=== PATIENT | female | born 1970 | race African-American/Black ===

== ENCOUNTER 2017-08-19 17:29 | Emergency (ER) | payer OTHER, MEDICAID ==
[~2017-08-19] VITALS: Ht 154.9 cm; Wt 55.0 kg
[~2017-08-19 17:29] MED LIST: BENADRYL1 CRE EX; FEOSOL45 MG PO; LISINOPRIL5 MG PO; LORTAB 1010 MG PO; NAPROSYN500 MG PO; NO HOME MEDS; NORVASC PO; NORVASC2.5 MG PO; ULTRAM50 M1 PO
[2017-08-19] MEDS ORDERED: ORPHENADRINE100 MG PO (19:50)
[2017-08-19] MEDS ORDERED: PERCOCET 5/325M1 TAB PO (19:50)
[2017-08-19 20:03] VITALS: BP 149/97
== END 2017-08-19 20:09 | disposition home or self-care (01) | DRG 552 ==
LOC: ED 17:29
DX: S16.1XXA Strain of muscle, fascia and tendon at neck level, initial encounter (principal); I10 Essential (primary) hypertension; V49.40XA Driver injured in collision with unspecified motor vehicles in traffic accident, initial encounter

== ENCOUNTER 2017-10-16 15:04 | Emergency (ER) | payer MEDICAID ==
[~2017-10-16] VITALS: Ht 154.9 cm; Wt 52.0 kg
[~2017-10-16 15:04] MED LIST changes: +ORPHENADRINE100 MG PO; +PERCOCET 5/325M1 TAB PO
[2017-10-16] MEDS ORDERED: LISINOPRIL10 MG PO (15:19)
[2017-10-16] MEDS ORDERED: CITALOPRAM40 MG PO (15:19)
[2017-10-16 16:01] LABS: HEMATOCRIT 40.9 % (37.0-47.0); HEMOGLOBIN 13.5 g/dl (12.0-16.0); IMMATURE GRANULOCYTES 0.2 % (0.0-1.0); MEAN CELL VOLUME 97.8 fL CALC (80.0-100.0); MEAN CORPUSCULAR HGB 32.3 pG CALC (26.0-32.0); NEUT# 1.74 thou/uL (2.00-7.15); RED BLOOD COUNT 4.18 mill/uL (4.20-5.60); RED CELL DISTRI WIDTH 12.8 % (11.5-15.5)
[2017-10-16 16:19] LABS: ANION GAP 19 (6-22 (CALC)); BUN 11 mg/dL (7-17); BUN/CREATININE RATIO 13 (12-20 (CALC)); CALCIUM 9.9 mg/dL (8.4-10.2); CARBON DIOXIDE 23 mmol/l (22-30); CHLORIDE 103 mmol/l (95-108); CREATININE 0.9 mg/dL (0.5-1.0); GFR > 60 ML/MIN (>=60 (CALC)); GFR FOR AFR.AMER. > 60 ML/MIN (>=60 (CALC)); GLUCOSE 110 mg/dL (65-105); POTASSIUM 4.1 mmol/l (3.5-5.1); SODIUM 141 mmol/l (137-146)
[2017-10-16 17:12] VITALS: BP 167/98
[2017-10-17] MEDS ORDERED: MOTRIN800 MG PO (12:51)
== END 2017-10-16 17:16 | disposition home or self-care (01) | DRG 103 ==
LOC: ED 15:04
PROVIDERS: Family Medicine
DX: R51 Headache (principal); I10 Essential (primary) hypertension

== ENCOUNTER 2017-10-17 12:01 | Emergency (ER) | payer MEDICAID ==
[~2017-10-17] VITALS: Ht 154.9 cm; Wt 52.0 kg
[~2017-10-17 12:01] MED LIST changes: +CITALOPRAM40 MG PO; +LISINOPRIL10 MG PO
[2017-10-17] MEDS ORDERED: MOTRIN800 MG PO (12:51)
[2017-10-17 13:05] VITALS: BP 141/91
== END 2017-10-17 13:05 | disposition home or self-care (01) | DRG 103 ==
LOC: ED 12:01
DX: R51 Headache (principal); I10 Essential (primary) hypertension

== ENCOUNTER 2017-10-18 17:24 | Emergency (ER) | payer MEDICAID ==
[~2017-10-18] VITALS: Ht 154.9 cm; Wt 50.0 kg
[~2017-10-18 17:24] MED LIST changes: +MOTRIN800 MG PO
[2017-10-18 19:30] VITALS: BP 128/72
== END 2017-10-18 19:35 | disposition home or self-care (01) | DRG 103 ==
LOC: ED 17:24
DX: R51 Headache (principal); I10 Essential (primary) hypertension

== ENCOUNTER 2017-11-03 16:27 | Emergency (ER) | payer MEDICAID ==
[~2017-11-03] VITALS: Ht 154.9 cm; Wt 65.0 kg
[2017-11-03] MEDS ORDERED: LISINOP/HCTZ1 TA1 PO (17:24)
[2017-11-03] MEDS ORDERED: SERTRALINE50 MG PO (17:24)
[2017-11-03] MEDS ORDERED: ADLT ASA LOW81 MG PO (17:25)
[2017-11-03 17:36] VITALS: BP 143/87
== END 2017-11-03 17:36 | disposition home or self-care (01) | DRG 880 ==
LOC: ED 16:27
DX: F41.9 Anxiety disorder, unspecified (principal); I10 Essential (primary) hypertension

== ENCOUNTER 2017-11-12 05:50 | Observation (INO) | payer MEDICAID ==
[~2017-11-12] VITALS: Ht 154.9 cm; Wt 50.0 kg
[~2017-11-12 05:50] MED LIST changes: +ADLT ASA LOW81 MG PO; +LISINOP/HCTZ1 TA1 PO; +SERTRALINE50 MG PO
[2017-11-12] MEDS ORDERED: AMLODIPINE5 MG PO (06:11)
[2017-11-12] MEDS ORDERED: LOSARTAN POT50 MG PO (06:12)
[2017-11-12] MEDS ORDERED: CARVEDILOL6.25 MG PO (06:13)
[2017-11-12 07:23] LABS: HEMATOCRIT 45.8 % (37.0-47.0); HEMOGLOBIN 15.2 g/dl (12.0-16.0); IMMATURE GRANULOCYTES 0.2 % (0.0-1.0); MEAN CORPUSCULAR HGB 32.2 pG CALC (26.0-32.0); MEAN CORPUSCULAR HGB CONC 33.2 g/L CALC (32.0-36.0); NEUT# 2.69 thou/uL (2.00-7.15); RED BLOOD COUNT 4.72 mill/uL (4.20-5.60); RED CELL DISTRI WIDTH 12.4 % (11.5-15.5)
[2017-11-12 07:32] LABS: ANION GAP 17 (6-22 (CALC)); BUN 9 mg/dL (7-17); BUN/CREATININE RATIO 11 (12-20 (CALC)); CALCIUM 10.3 mg/dL (8.4-10.2); CARBON DIOXIDE 25 mmol/l (22-30); CHLORIDE 105 mmol/l (95-108); CREATININE 0.8 mg/dL (0.5-1.0); GFR > 60 ML/MIN (>=60 (CALC)); GFR FOR AFR.AMER. > 60 ML/MIN (>=60 (CALC)); GLUCOSE 105 mg/dL (65-105); POTASSIUM 4.2 mmol/l (3.5-5.1); SODIUM 143 mmol/l (137-146)
[2017-11-12 09:34] LABS: CHOLESTEROL HDL RATIO 3.8 (<4.4 (CALC))
[2017-11-12 10:17] VITALS: BP 121/89
== END 2017-11-12 11:00 | disposition left against medical advice (07) | DRG 313 ==
LOC: ED 05:50 → ED-I 08:29 → ED 08:54 → MS2 08:55
PROVIDERS: Family Medicine; ADMIT Internal Medicine; ATTEND Internal Medicine
DX: R07.9 Chest pain, unspecified (principal); I10 Essential (primary) hypertension; F41.9 Anxiety disorder, unspecified
CPT/HCPCS: G0378

== ENCOUNTER 2017-11-12 11:15 | Emergency (ER) | payer MEDICAID ==
[~2017-11-12] VITALS: Ht 154.9 cm; Wt 51.2 kg
[~2017-11-12 11:15] MED LIST changes: +AMLODIPINE5 MG PO; +CARVEDILOL6.25 MG PO; +LOSARTAN POT50 MG PO
[2017-11-12 12:32] LABS: HEMATOCRIT 41.8 % (37.0-47.0); HEMOGLOBIN 13.7 g/dl (12.0-16.0); IMMATURE GRANULOCYTES 0.2 % (0.0-1.0); MEAN CORPUSCULAR HGB 31.8 pG CALC (26.0-32.0); MEAN CORPUSCULAR HGB CONC 32.8 g/L CALC (32.0-36.0); NEUT# 2.38 thou/uL (2.00-7.15); RED BLOOD COUNT 4.31 mill/uL (4.20-5.60); RED CELL DISTRI WIDTH 12.5 % (11.5-15.5)
[2017-11-12 12:47] LABS: ANION GAP 16 (6-22 (CALC)); BUN 9 mg/dL (7-17); BUN/CREATININE RATIO 13 (12-20 (CALC)); CALCIUM 10.1 mg/dL (8.4-10.2); CARBON DIOXIDE 22 mmol/l (22-30); CHLORIDE 107 mmol/l (95-108); CREATININE 0.7 mg/dL (0.5-1.0); GFR > 60 ML/MIN (>=60 (CALC)); GFR FOR AFR.AMER. > 60 ML/MIN (>=60 (CALC)); GLUCOSE 125 mg/dL (65-105); POTASSIUM 4.2 mmol/l (3.5-5.1); SODIUM 140 mmol/l (137-146)
[2017-11-12 13:15] VITALS: BP 120/89
== END 2017-11-12 13:15 | disposition home or self-care (01) | DRG 948 ==
LOC: ED 11:15
PROVIDERS: Family Medicine
DX: R53.1 Weakness (principal); I10 Essential (primary) hypertension

== ENCOUNTER 2017-12-16 12:33 | Observation (INO) | payer MEDICAID ==
[~2017-12-16] VITALS: Ht 154.9 cm; Wt 50.0 kg
[2017-12-16 13:25] LABS: HEMOGLOBIN 13.8 g/dl (12.0-16.0); IMMATURE GRANULOCYTES 0.7 % (0.0-1.0); MEAN CELL VOLUME 97.9 fL CALC (80.0-100.0); MEAN CORPUSCULAR HGB 32.2 pG CALC (26.0-32.0); MEAN CORPUSCULAR HGB CONC 32.9 g/L CALC (32.0-36.0); NEUT# 1.09 thou/uL (2.00-7.15); RED BLOOD COUNT 4.29 mill/uL (4.20-5.60); RED CELL DISTRI WIDTH 13.1 % (11.5-15.5)
[2017-12-16 13:46] LABS: ANION GAP 17 (6-22 (CALC)); BUN 12 mg/dL (7-17); BUN/CREATININE RATIO 15 (12-20 (CALC)); CALCIUM 9.9 mg/dL (8.4-10.2); CARBON DIOXIDE 24 mmol/l (22-30); CHLORIDE 107 mmol/l (95-108); CREATININE 0.8 mg/dL (0.5-1.0); GFR > 60 ML/MIN (>=60 (CALC)); GFR FOR AFR.AMER. > 60 ML/MIN (>=60 (CALC)); GLUCOSE 85 mg/dL (65-105); SODIUM 144 mmol/l (137-146)
[2017-12-16 15:46] VITALS: BP 140/96
[2017-12-16 20:25] VITALS: BP 139/90
[2017-12-17 00:30] VITALS: BP 119/81
[2017-12-17 05:05] VITALS: BP 131/95
[2017-12-17 07:32] LABS: CHOLESTEROL HDL RATIO 2.6 (<4.4 (CALC))
[2017-12-17 08:18] VITALS: BP 138/97
[2017-12-17 12:40] VITALS: BP 141/95
[2017-12-17] MEDS ORDERED: LOSARTAN POT50 MG PO (13:33)
[2017-12-17] MEDS ORDERED: AMLODIPINE BESYL5 MG PO (13:33)
== END 2017-12-17 14:50 | disposition home or self-care (01) | DRG 305 ==
LOC: ED 12:33 → ED-I 14:02 → ED 14:15 → MS2 14:16
PROVIDERS: Family Medicine; ADMIT Internal Medicine; ATTEND Internal Medicine
DX: I16.0 Hypertensive urgency (principal); I10 Essential (primary) hypertension; D70.9 Neutropenia, unspecified; D50.9 Iron deficiency anemia, unspecified; F41.9 Anxiety disorder, unspecified; Z91.14 Patient's other noncompliance with medication regimen
CPT/HCPCS: G0378

== ENCOUNTER 2018-04-08 16:50 | Emergency (ER) | payer MEDICAID ==
[~2018-04-08] VITALS: Ht 154.9 cm; Wt 52.0 kg
[~2018-04-08 16:50] MED LIST changes: +AMLODIPINE BESYL5 MG PO
[2018-04-08 17:52] LABS: HEMATOCRIT 42.8 % (37.0-47.0); HEMOGLOBIN 13.9 g/dl (12.0-16.0); MEAN CELL VOLUME 98.6 fL CALC (80.0-100.0); MEAN CORPUSCULAR HGB CONC 32.5 g/L CALC (32.0-36.0); NEUT# 1.42 thou/uL (2.00-7.15); RED BLOOD COUNT 4.34 mill/uL (4.20-5.60); RED CELL DISTRI WIDTH 13.1 % (11.5-15.5)
[2018-04-08] MEDS ORDERED: LEVAQUIN500 MG PO (17:53)
[2018-04-08] MEDS ORDERED: CORTISPORIN OTI10 M2 AU (17:53)
[2018-04-08] MEDS ORDERED: ANTIVERT PO (17:54)
[2018-04-08 18:08] LABS: ALBUMIN 4.4 g/dL (3.2-5.0); ALKALINE PHOSPHATASE 56 u/l (38-126); BILIRUBIN, TOTAL 0.4 mg/dL (0.0-1.4); BUN 18 mg/dL (7-17); BUN/CREATININE RATIO 19 (12-20 (CALC)); CARBON DIOXIDE 25 mmol/l (22-30); CHLORIDE 104 mmol/l (95-108); GFR 59 ML/MIN (>=60 (CALC)); GFR FOR AFR.AMER. > 60 ML/MIN (>=60 (CALC)); SGOT/AST 22 u/l (14-36); SGPT/ALT 23 u/l (9-52); SODIUM 143 mmol/l (137-146); TOTAL PROTEIN 8.5 g/dL (6.3-8.2)
[2018-04-08 18:16] LABS: ANION GAP 18 (6-22 (CALC)); POTASSIUM 3.8 mmol/l (3.5-5.1)
[2018-04-08 18:56] VITALS: BP 150/86
== END 2018-04-08 18:53 | disposition home or self-care (01) | DRG 153 ==
LOC: ED 16:50
PROVIDERS: Emergency Medicine
DX: H66.92 Otitis media, unspecified, left ear (principal); R42 Dizziness and giddiness; F41.9 Anxiety disorder, unspecified; I10 Essential (primary) hypertension

== ENCOUNTER 2018-07-04 14:43 | Emergency (ER) | payer MEDICAID ==
[~2018-07-04] VITALS: Ht 154.9 cm; Wt 54.0 kg
[~2018-07-04 14:43] MED LIST changes: +ANTIVERT PO; +CORTISPORIN OTI10 M2 AU; +LEVAQUIN500 MG PO
[2018-07-04 15:57] LABS: HEMATOCRIT 39.1 % (37.0-47.0); HEMOGLOBIN 12.8 g/dl (12.0-16.0); IMMATURE GRANULOCYTES 0.2 % (0.0-5.0); MEAN CELL VOLUME 99.2 fL CALC (80.0-100.0); MEAN CORPUSCULAR HGB 32.5 pG CALC (26.0-32.0); MEAN CORPUSCULAR HGB CONC 32.7 g/L CALC (32.0-36.0); NEUT# 2.26 thou/uL (2.00-7.15); RED BLOOD COUNT 3.94 mill/uL (4.20-5.60); RED CELL DISTRI WIDTH 13.1 % (11.5-15.5)
[2018-07-04 16:08] LABS: ALKALINE PHOSPHATASE 47 u/l (38-126); ANION GAP 14 (6-22 (CALC)); BILIRUBIN, TOTAL 0.7 mg/dL (0.0-1.4); BUN 12 mg/dL (7-17); BUN/CREATININE RATIO 16 (12-20 (CALC)); CARBON DIOXIDE 25 mmol/l (22-30); CHLORIDE 104 mmol/l (95-108); CREATININE 0.8 mg/dL (0.5-1.0); ETHYL ALCOHOL 0 mg/dl (0-30); GFR > 60 ML/MIN (>=60 (CALC)); GFR FOR AFR.AMER. > 60 ML/MIN (>=60 (CALC)); SGPT/ALT 25 u/l (9-52); SODIUM 139 mmol/l (137-146); TOTAL PROTEIN 7.9 g/dL (6.3-8.2)
[2018-07-04 16:09] LABS: PROTHROMBIN TIME 11.2 SECONDS (9.0-12.5)
[2018-07-04 16:14] LABS: SGOT/AST 51 u/l (14-36)
[2018-07-04 16:38] LABS: BARBITURATES NEGATIVE (NEGATIVE); COCAINE NEGATIVE (NEGATIVE); METHADONE NEGATIVE (NEGATIVE); OXCYCODONE NEGATIVE (NEGATIVE); TETRAHYDROCANNABIONOL NEGATIVE (NEGATIVE); TRICYLIC ANTIDEPRESSANTS NEGATIVE (NEGATIVE)
[2018-07-04] MEDS ORDERED: AMLODIPINE BESY10 MG PO (18:09)
[2018-07-04] MEDS ORDERED: LOSARTAN POT50 MG PO (18:09)
[2018-07-04 18:30] VITALS: BP 144/107
== END 2018-07-04 18:35 | disposition home or self-care (01) ==
LOC: ED 14:43
PROVIDERS: Emergency Medicine
DX: I10 Essential (primary) hypertension (principal); Z91.14 Patient's other noncompliance with medication regimen

== ENCOUNTER 2018-11-09 11:39 | Emergency (ER) | payer MEDICAID ==
[~2018-11-09] VITALS: Ht 154.9 cm; Wt 50.0 kg
[~2018-11-09 11:39] MED LIST changes: +AMLODIPINE BESY10 MG PO; +MECLIZINE12.5 M1 PO; +MEDDOSEPAK PO; +TRAMADOL HCL50 MG PO
[2018-11-09 11:59] LABS: HEMOGLOBIN 13.5 g/dl (12.0-16.0); IMMATURE GRANULOCYTES 0.2 % (0.0-5.0); MEAN CELL VOLUME 98.8 fL CALC (80.0-100.0); MEAN CORPUSCULAR HGB 32.7 pG CALC (26.0-32.0); MEAN CORPUSCULAR HGB CONC 33.1 g/L CALC (32.0-36.0); NEUT# 1.98 thou/uL (2.00-7.15); RED BLOOD COUNT 4.13 mill/uL (4.20-5.60); RED CELL DISTRI WIDTH 12.9 % (11.5-15.5)
[2018-11-09 12:00] LABS: HEMATOCRIT 40.8 % (37.0-47.0)
[2018-11-09 12:21] LABS: ALKALINE PHOSPHATASE 50 u/l (38-126); ANION GAP 15 (6-22 (CALC)); BILIRUBIN, TOTAL 0.4 mg/dL (0.0-1.4); BUN 20 mg/dL (7-17); BUN/CREATININE RATIO 23 (12-20 (CALC)); CARBON DIOXIDE 22 mmol/l (22-30); CHLORIDE 107 mmol/l (95-108); CREATININE 0.9 mg/dL (0.5-1.0); GFR > 60 ML/MIN (>=60 (CALC)); GFR FOR AFR.AMER. > 60 ML/MIN (>=60 (CALC)); POTASSIUM 3.9 mmol/l (3.5-5.1); SGOT/AST 23 u/l (14-36); SODIUM 140 mmol/l (137-146)
[2018-11-09 12:24] LABS: TOTAL PROTEIN 7.8 g/dL (6.3-8.2)
[2018-11-09 12:33] LABS: BARBITURATES NEGATIVE (NEGATIVE); COCAINE NEGATIVE (NEGATIVE); METHADONE NEGATIVE (NEGATIVE); OXCYCODONE NEGATIVE (NEGATIVE); TETRAHYDROCANNABIONOL NEGATIVE (NEGATIVE); TRICYLIC ANTIDEPRESSANTS NEGATIVE (NEGATIVE); URINE BILIRUBIN - DIPSTICK NEGATIVE (NEGATIVE); URINE BLOOD DIPSTICK NEGATIVE (NEGATIVE); URINE COLOR YELLOW; URINE GLUCOSE - DIPSTICK NEGATIVE (NEGATIVE); URINE KETONE NEGATIVE (NEGATIVE); URINE LEUK ESTERASE NEGATIVE (NEGATIVE); URINE NITRITE - DIPSTICK NEGATIVE (Negative); URINE PROTEIN - DIPSTICK NEGATIVE (NEG-TRACE); URINE SPECIFIC GRAVITY >=1.030; URINE UROBILINOGEN - DIPSTICK 0.2 E.U./dL (0.2)
[2018-11-09] MEDS ORDERED: AMLODIPINE10 MG PO (12:46)
[2018-11-09] MEDS ORDERED: LOSARTAN POT50 MG PO (12:46)
[2018-11-09 13:11] VITALS: BP 136/85
== END 2018-11-09 13:18 | disposition home or self-care (01) ==
LOC: ED 11:39
PROVIDERS: Emergency Medicine
DX: I10 Essential (primary) hypertension (principal); F41.9 Anxiety disorder, unspecified; Z91.14 Patient's other noncompliance with medication regimen

== ENCOUNTER 2018-12-21 10:21 | Emergency (ER) | payer MEDICAID ==
[~2018-12-21] VITALS: Ht 154.9 cm; Wt 50.0 kg
[~2018-12-21 10:21] MED LIST changes: +AMLODIPINE10 MG PO
[2018-12-21] MEDS ORDERED: ATENOLOL25 MG PO (10:33)
[2018-12-21 12:12] LABS: ALBUMIN 3.7 g/dL (3.2-5.0); ALKALINE PHOSPHATASE 44 u/l (38-126); ANION GAP 11 (6-22 (CALC)); BILIRUBIN, TOTAL 0.6 mg/dL (0.0-1.4); BUN 13 mg/dL (7-17); BUN/CREATININE RATIO 14 (12-20 (CALC)); CARBON DIOXIDE 25 mmol/l (22-30); CHLORIDE 106 mmol/l (95-108); CREATININE 0.9 mg/dL (0.5-1.0); GFR > 60 ML/MIN (>=60 (CALC)); GFR FOR AFR.AMER. > 60 ML/MIN (>=60 (CALC)); LIPASE 81 u/l (23-300); SGOT/AST 28 u/l (14-36); SODIUM 139 mmol/l (137-146)
[2018-12-21 12:19] LABS: HEMATOCRIT 44.6 % (37.0-47.0); HEMOGLOBIN 14.6 g/dl (12.0-16.0); IMMATURE GRANULOCYTES 0.2 % (0.0-5.0); MEAN CELL VOLUME 100.9 fL CALC (80.0-100.0); MEAN CORPUSCULAR HGB CONC 32.7 g/L CALC (32.0-36.0); NEUT# 1.62 thou/uL (2.00-7.15); RED BLOOD COUNT 4.42 mill/uL (4.20-5.60); RED CELL DISTRI WIDTH 13.6 % (11.5-15.5)
[2018-12-21 13:38] LABS: BARBITURATES NEGATIVE (NEGATIVE); COCAINE NEGATIVE (NEGATIVE); METHADONE NEGATIVE (NEGATIVE); OXCYCODONE NEGATIVE (NEGATIVE); TETRAHYDROCANNABIONOL NEGATIVE (NEGATIVE); TRICYLIC ANTIDEPRESSANTS NEGATIVE (NEGATIVE)
[2018-12-21] MEDS ORDERED: XANAX0.25 MG PO (13:58)
[2018-12-21] MEDS ORDERED: PROTONIX40 M2 PO (13:58)
[2018-12-21 14:33] VITALS: BP 127/89
== END 2018-12-21 15:00 | disposition home or self-care (01) ==
LOC: ED 10:21
PROVIDERS: Emergency Medicine
DX: R07.89 Other chest pain (principal); F41.9 Anxiety disorder, unspecified; I10 Essential (primary) hypertension

== ENCOUNTER 2020-03-07 | Emergency (ER) | payer MEDICAID ==
[~2020-03-07] MED LIST changes: +ATENOLOL25 MG PO; +PROTONIX40 M2 PO; +XANAX0.25 MG PO
[2020-03-07] MEDS ORDERED: LISINOPRIL10 M1 PO (22:38)
[2020-03-07 23:09] LABS: URINE BILIRUBIN - DIPSTICK NEGATIVE (NEGATIVE); URINE BLOOD DIPSTICK TRACE-INTACT (NEGATIVE); URINE COLOR YELLOW; URINE GLUCOSE - DIPSTICK NEGATIVE (NEGATIVE); URINE KETONE NEGATIVE (NEGATIVE); URINE LEUK ESTERASE NEGATIVE (NEGATIVE); URINE NITRITE - DIPSTICK NEGATIVE (Negative); URINE PH 5.5 (4.5-8.0); URINE PROTEIN - DIPSTICK NEGATIVE (NEG-TRACE); URINE SPECIFIC GRAVITY 1.025; URINE UROBILINOGEN - DIPSTICK 0.2 E.U./dL (0.2)
[2020-03-07 23:14] LABS: BARBITURATES NEGATIVE (NEGATIVE); COCAINE NEGATIVE (NEGATIVE); METHADONE NEGATIVE (NEGATIVE); OXCYCODONE NEGATIVE (NEGATIVE); TETRAHYDROCANNABIONOL NEGATIVE (NEGATIVE); TRICYLIC ANTIDEPRESSANTS NEGATIVE (NEGATIVE)
[2020-03-07 23:33] LABS: HEMATOCRIT 42.4 % (37.0-47.0); HEMOGLOBIN 13.7 g/dl (12.0-16.0); IMMATURE GRANULOCYTES 0.2 % (0.0-5.0); MEAN CELL VOLUME 98.6 fL CALC (80.0-100.0); MEAN CORPUSCULAR HGB 31.9 pG CALC (26.0-32.0); MEAN CORPUSCULAR HGB CONC 32.3 g/dL CAL (32.0-36.0); NEUT# 2.22 thou/uL (2.00-7.15); RED BLOOD COUNT 4.3 mill/uL (4.20-5.60)
[2020-03-07 23:47] LABS: ALKALINE PHOSPHATASE 59 u/l (38-126); ANION GAP 15 (6-22 (CALC)); BILIRUBIN, TOTAL 0.6 mg/dL (0.0-1.4); BUN 14 mg/dL (7-17); BUN/CREATININE RATIO 14 (12-20 (CALC)); CARBON DIOXIDE 21 mmol/l (22-30); CHLORIDE 108 mmol/l (95-108); GFR 59 ML/MIN (>=60 (CALC)); GFR FOR AFR.AMER. > 60 ML/MIN (>=60 (CALC)); POTASSIUM 3.5 mmol/l (3.5-5.1); SGOT/AST 26 u/l (14-36); SODIUM 140 mmol/l (137-146)
[2020-03-07 23:51] LABS: ALBUMIN 4.5 g/dL (3.2-5.0); TOTAL PROTEIN 8.7 g/dL (6.3-8.2)
[2020-03-07 23:59] LABS: MYOGLOBIN 29 ng/mL (0 - 62)
[2020-03-08] MEDS ORDERED: TOPROL XL50 MG PO (00:34)
== END 2020-03-08 00:35 | disposition home or self-care (01) ==
PROVIDERS: Family Medicine
DX: I10 Essential (primary) hypertension (principal); F41.9 Anxiety disorder, unspecified

== ENCOUNTER 2020-03-08 | Emergency (ER) | payer MEDICAID ==
[~2020-03-08] MED LIST changes: +LISINOPRIL10 M1 PO
[2020-03-08] MEDS ORDERED: TOPROL XL50 MG PO (00:34)
[2020-03-08 21:53] LABS: HEMATOCRIT 39.2 % (37.0-47.0); HEMOGLOBIN 12.7 g/dl (12.0-16.0); IMMATURE GRANULOCYTES 0.3 % (0.0-5.0); MEAN CELL VOLUME 100.5 fL CALC (80.0-100.0); MEAN CORPUSCULAR HGB 32.6 pG CALC (26.0-32.0); MEAN CORPUSCULAR HGB CONC 32.4 g/dL CAL (32.0-36.0); NEUT# 2.35 thou/uL (2.00-7.15); RED BLOOD COUNT 3.9 mill/uL (4.20-5.60)
[2020-03-08 22:06] LABS: BILIRUBIN, TOTAL 0.4 mg/dL (0.0-1.4); CREATININE 1.3 mg/dL (0.5-1.0); POTASSIUM 3.7 mmol/l (3.5-5.1); TOTAL PROTEIN 7.8 g/dL (6.3-8.2)
== END 2020-03-08 23:50 | disposition home or self-care (01) ==
PROVIDERS: Family Medicine
DX: I10 Essential (primary) hypertension (principal); R13.10 Dysphagia, unspecified; T44.7X6A Underdosing of beta-adrenoreceptor antagonists, initial encounter; Z91.128 Patient's intentional underdosing of medication regimen for other reason
CPT/HCPCS: Q9967

== ENCOUNTER 2020-03-15 | Emergency (ER) | payer MEDICAID ==
[~2020-03-15] MED LIST changes: +TOPROL XL50 MG PO
[2020-03-15] MEDS ORDERED: BENADRYL 50MG C50 MG PO (03:13)
== END 2020-03-15 04:00 | disposition home or self-care (01) ==
DX: R20.2 Paresthesia of skin (principal); I10 Essential (primary) hypertension
CPT/HCPCS: J2060

== ENCOUNTER 2020-10-19 08:24 | Emergency (ER) | payer MEDICAID ==
[~2020-10-19] VITALS: Ht 154.9 cm; Wt 48.0 kg
[~2020-10-19 08:24] MED LIST changes: +BENADRYL 50MG C50 MG PO; -LISINOPRIL10 M1 PO; +LISINOPRIL20 MG PO
[2020-10-19 09:08] LABS: IMMATURE GRANULOCYTES 0.2 % (0.0-5.0); MEAN CELL VOLUME 100.4 fL CALC (80.0-100.0); MEAN CORPUSCULAR HGB 32.9 pG CALC (26.0-32.0); MEAN CORPUSCULAR HGB CONC 32.8 g/dL CAL (32.0-36.0); NEUT# 2.8 thou/uL (2.00-7.15); RED BLOOD COUNT 4.65 mill/uL (4.20-5.60); RED CELL DISTRI WIDTH 13.4 % (11.5-15.5)
[2020-10-19 09:09] LABS: HEMATOCRIT 46.7 % (37.0-47.0); HEMOGLOBIN 15.3 g/dl (12.0-16.0)
[2020-10-19 09:27] LABS: ALKALINE PHOSPHATASE 79 u/l (38-126); ANION GAP 16 (6-22 (CALC)); BUN 17 mg/dL (7-17); BUN/CREATININE RATIO 18 (12-20 (CALC)); CARBON DIOXIDE 25 mmol/l (22-30); CHLORIDE 106 mmol/l (95-108); GFR 59 ML/MIN (>=60 (CALC)); GFR FOR AFR.AMER. > 60 ML/MIN (>=60 (CALC)); POTASSIUM 4.2 mmol/l (3.5-5.1); SODIUM 142 mmol/l (137-146)
[2020-10-19 09:28] LABS: ALBUMIN 4.9 g/dL (3.2-5.0); BILIRUBIN, TOTAL 0.8 mg/dL (0.0-1.4); TOTAL PROTEIN 9.5 g/dL (6.3-8.2)
[2020-10-19 09:29] LABS: SGOT/AST 65 u/l (14-36)
[2020-10-19] MEDS ORDERED: HYDROCHLOROT25 MG PO (10:18)
[2020-10-19] MEDS ORDERED: ATORVASTATIN CA40 MG PO (10:18)
[2020-10-19] MEDS ORDERED: ELIQUIS5 MG PO (10:19)
[2020-10-19 11:30] VITALS: BP 157/100
== END 2020-10-19 11:30 | disposition home or self-care (01) ==
LOC: ED 08:24
PROVIDERS: Family Medicine
DX: M79.672 Pain in left foot (principal); M79.602 Pain in left arm; I10 Essential (primary) hypertension; F41.9 Anxiety disorder, unspecified

== ENCOUNTER 2022-05-26 13:22 | Observation (INO) | payer MEDICAID ==
[~2022-05-26] VITALS: Ht 154.9 cm; Wt 54.3 kg
[2022-05-26] VITALS (29 sets, daily range): BP systolic 95–207; BP diastolic 59–156
[~2022-05-26 13:22] MED LIST changes: +ATORVASTATIN CA40 MG PO; +ELIQUIS5 MG PO; +HYDROCHLOROT25 MG PO
--- NOTE | 2022-05-26 13:22 | NUR ---
PT DEJAN WITH STROKE SYMPTOMS. STROKE ALERT CALLED AND PT XPORT TO CT. [facility] 1
[2022-05-26 14:01] LABS: HEMOGLOBIN 15.6 g/dl (12.0-16.0); IMMATURE GRANULOCYTES 0.2 % (0.0-5.0); MEAN CELL VOLUME 101.2 fL CALC (80.0-100.0); MEAN CORPUSCULAR HGB 32.2 pG CALC (26.0-32.0); MEAN CORPUSCULAR HGB CONC 31.8 g/dL CAL (32.0-36.0); NEUT# 3.01 thou/uL (2.00-7.15); RED BLOOD COUNT 4.85 mill/uL (4.20-5.60); RED CELL DISTRI WIDTH 12.9 % (11.5-15.5)
[2022-05-26 14:09] LABS: GFR FOR AFR.AMER. > 60 ML/MIN (>=60 (CALC)); GFR OTHER RACES 58 ML/MIN (>=60 (CALC))
[2022-05-26 14:17] LABS: ALBUMIN 4.6 g/dL (3.2-5.0); ALKALINE PHOSPHATASE 92 u/l (38-126); ANION GAP 14 (6-22 (CALC)); BILIRUBIN, TOTAL 0.7 mg/dL (0.0-1.4); BUN 14 mg/dL (7-17); BUN/CREATININE RATIO 14 (12-20 (CALC)); CARBON DIOXIDE 23 mmol/l (22-30); CHLORIDE 108 mmol/l (95-108); GFR FOR AFR.AMER. > 60 ML/MIN (>=60 (CALC)); GFR OTHER RACES 58 ML/MIN (>=60 (CALC)); SGOT/AST 47 u/l (14-36); SODIUM 141 mmol/l (137-146); TOTAL PROTEIN 9.2 g/dL (6.3-8.2)
[2022-05-26 14:18] LABS: PROTHROMBIN TIME 10.4 SECONDS (9.0-12.5)
[2022-05-26 14:19] LABS: HEMATOCRIT 49.1 % (37.0-47.0)
--- NOTE | 2022-05-26 16:15 | NUR ---
CASIE ARREGUIN XFER TO ICU.
--- NOTE | 2022-05-26 17:18 | NUR ---
PT ARRIVED TO UNIT VIA STRECHER AT 1630. HEAD-TO-TOE ASSESSMENT COMPLETED. [facility] SCORE OF 1 DUE TO DECREASED SENSATION ON L SIDE. SWALLOW EVAL COMPLETED AND PASSED. VSS EXCEPT FOR HTN. SAFETY PRECAUTIONS IN PLACE.
--- NOTE | 2022-05-26 19:00 | NUR ---
REPORT RECEIVED FROM Dwaine JUAREZ RN AT BEDSIDE. CARE OF PT ASSUMED AT THIS TIME.
--- NOTE | 2022-05-26 20:00 | NUR ---
ASSESMENT COMPLETED. [facility].
--- NOTE | 2022-05-26 20:30 | NUR ---
CALL RECEIVED FROM CALLER IDENTIFYING SELF PATIENTS SON. MANOHAR LEMOS . SPOKE WITH PATIENT AND VERBAL PERMISSION RECEIVED TO DISCUSS INFORMATION WITH THIS CALLER OVER PHONE AND PROVIDE COMMUNICATION CODE TO THIS CALLER. APPROXIMATELY SEVEN MINUTES SPENT DISCUSSING PT AND ANSWERING QUESTIONS.
--- NOTE | 2022-05-26 22:00 | NUR ---
PT REPORTS HEADACHE HAS RESOLVED.
[2022-05-27] VITALS (55 sets, daily range): BP systolic 88–178; BP diastolic 58–128
--- NOTE | 2022-05-27 | NUR ---
NUERO ASSESMENT UNCHANGED.
--- NOTE | 2022-05-27 02:00 | NUR ---
WARM BLANKET PROVIDED PER PT'S REQUEST.
--- NOTE | 2022-05-27 04:00 | NUR ---
NEURO ASSESMENT UNCHANGED.
--- NOTE | 2022-05-27 04:58 | NUR ---
Timi DAMON CPT AT BEDSIDE COLLECTING LABS.
[2022-05-27 05:28] LABS: HEMATOCRIT 44.4 % (37.0-47.0); HEMOGLOBIN 14.1 g/dl (12.0-16.0); MEAN CELL VOLUME 102.3 fL CALC (80.0-100.0); MEAN CORPUSCULAR HGB 32.5 pG CALC (26.0-32.0); MEAN CORPUSCULAR HGB CONC 31.8 g/dL CAL (32.0-36.0); RED BLOOD COUNT 4.34 mill/uL (4.20-5.60); RED CELL DISTRI WIDTH 12.7 % (11.5-15.5)
--- NOTE | 2022-05-27 05:35 | NUR ---
DR. BOOGIE AT BEDSIDE.
[2022-05-27 05:49] LABS: ANION GAP 7 (6-22 (CALC)); BUN 10 mg/dL (7-17); BUN/CREATININE RATIO 11 (12-20 (CALC)); CARBON DIOXIDE 27 mmol/l (22-30); CHLORIDE 107 mmol/l (95-108); CREATININE 0.9 mg/dL (0.5-1.0); GFR FOR AFR.AMER. > 60 ML/MIN (>=60 (CALC)); GFR OTHER RACES > 60 ML/MIN (>=60 (CALC)); POTASSIUM 3.7 mmol/l (3.5-5.1); SODIUM 138 mmol/l (137-146)
--- NOTE | 2022-05-27 05:53 | NUR ---
PT ASSISTED UP TO BSC, VOIDS 400ML CLEAR YELLOW URINE.
--- NOTE | 2022-05-27 07:51 | NUR ---
MRI pre-screen completed.
--- NOTE | 2022-05-27 08:46 | NUR ---
Patient transported to MRI by nurse tech on bedside monitor, awake and alert, in wheelchair, no c/o pain or discomfort, no s/s of distress noted, respirations even andunlabored on room air.
--- NOTE | 2022-05-27 10:08 | NUR ---
Pt returned from MRI/Ultrasound, awake and alert, ambulatory without assitance, no c/o pain or discomfort, no s/s of distress noted, respirations evern and unlabored on room air, awaiting diagnostic results.
--- NOTE | 2022-05-27 11:37 | NUR ---
Case Management at bedside
[2022-05-27 17:51] LABS: URINE BILIRUBIN - DIPSTICK NEGATIVE (NEGATIVE); URINE BLOOD DIPSTICK NEGATIVE (NEGATIVE); URINE COLOR YELLOW; URINE GLUCOSE - DIPSTICK NEGATIVE (NEGATIVE); URINE KETONE NEGATIVE (NEGATIVE); URINE PH 5.5 (4.5-8.0); URINE PROTEIN - DIPSTICK NEGATIVE (NEG-TRACE); URINE SPECIFIC GRAVITY 1.025; URINE UROBILINOGEN - DIPSTICK 0.2 E.U./dL (0.2)
[2022-05-27 17:58] LABS: CHOLESTEROL HDL RATIO 2.7 (<4.4 (CALC))
[2022-05-27 17:59] LABS: URINE LEUK ESTERASE MODERATE (NEGATIVE); URINE NITRITE - DIPSTICK NEGATIVE (Negative)
[2022-05-27 18:19] LABS: URINE SQUAMOUS EPITHELIAL CELL FEW EPI/hpf (0-FEW)
--- NOTE | 2022-05-27 20:44 | NUR ---
patient resting in bed. no s/s of distress noted. took her pills without difficulty.
--- NOTE | 2022-05-27 21:04 | NUR ---
labetalol 10 mg I.v given for patient elevated b/p .
--- NOTE | 2022-05-27 23:00 | NUR ---
SLEEPING. TURNED AND REPOSITIONED.
[2022-05-28] VITALS (31 sets, daily range): BP systolic 102–137; BP diastolic 70–115
--- NOTE | 2022-05-28 | NUR ---
RESTING IN BED. NO COMPLAINT OF PAIN.
[2022-05-28 05:33] LABS: HEMATOCRIT 45.1 % (37.0-47.0); HEMOGLOBIN 14.2 g/dl (12.0-16.0); MEAN CELL VOLUME 103.9 fL CALC (80.0-100.0); MEAN CORPUSCULAR HGB 32.7 pG CALC (26.0-32.0); MEAN CORPUSCULAR HGB CONC 31.5 g/dL CAL (32.0-36.0); RED BLOOD COUNT 4.34 mill/uL (4.20-5.60); RED CELL DISTRI WIDTH 12.8 % (11.5-15.5)
--- NOTE | 2022-05-28 05:49 | NUR ---
ASSITED IN THE COMMODE. EATING BREAKFAST. NO COMPLAINT.
[2022-05-28 06:28] LABS: ANION GAP 9 (6-22 (CALC)); BUN 10 mg/dL (7-17); BUN/CREATININE RATIO 12 (12-20 (CALC)); CARBON DIOXIDE 25 mmol/l (22-30); CHLORIDE 108 mmol/l (95-108); CREATININE 0.8 mg/dL (0.5-1.0); GFR FOR AFR.AMER. > 60 ML/MIN (>=60 (CALC)); GFR OTHER RACES > 60 ML/MIN (>=60 (CALC)); MAGNESIUM 1.8 mg/dL (1.6-2.3); POTASSIUM 3.7 mmol/l (3.5-5.1); SODIUM 139 mmol/l (137-146)
--- NOTE | 2022-05-28 07:12 | NUR ---
REPORT FROM JUDAH YBARRA. ASSUMED PT CARE.
--- NOTE | 2022-05-28 07:18 | NUR ---
PT RESTING IN BED WATCHING TV. ALERT AND ORIENTED X3. NO APPARENT DISTRESS NOTED. PT DENIES ANY PAIN OR DISCOMFORT. NO CURRENT WANTS OR NEEDS. DISCUSSED POC AND SAFETY PRECAUTIONS. PT VERBALIZED UNDERSTANDING. BP IMPROVED WITH ADMINISTRATION OF LABETALOL. CALL LIGHT WITHIN REACH. WILL CONTINUE TO MONITOR.
--- NOTE | 2022-05-28 08:31 | NUR ---
PT MEDICATED ORDERED. EDUCATION PROVIDED. PT DENIES ANY CURRENT PAIN OR DISCOMFORT. CALL LIGHT WITHIN REACH. WILL CONTINUE TO MONITOR.
--- NOTE | 2022-05-28 09:47 | NUR ---
DR. AGUILAR AT BEDSIDE.
--- NOTE | 2022-05-28 11:06 | NUR ---
STAND BY ASSIST, PT UP TO [place] WITH STEADY GAIT. VOIDED WITHOUT DIFFICULTY AND BACK INTO BED. FRESH ICE WATER PROVIDED AT THIS TIME. PT REQUEST FRESH FRUIT ON LUNCH TRAY, NOTIFIED DIETARY. PT DENIES ANY OTHER CURRENT WANTS OR NEEDS. CALL LIGHT WITHIN REACH. WILL CONTINUE TO MONITOR.
[2022-05-28] MEDS ORDERED: ASPIRIN 81 LOW81 MG PO (12:28)
[2022-05-28] MEDS ORDERED: LIPITOR80 M1 PO (12:28)
[2022-05-28] MEDS ORDERED: ZESTRIL40 MG PO (13:01)
--- NOTE | 2022-05-28 13:04 | NUR ---
DISCHARGE INSTRUCTIONS AND EDUCATION DICUSSED AND PROVIDED AT THIS TIME, VERBALIZED UNDERSTANDING. PT PLACED CALL TO DAUGHTER TO PICK HER UP.
--- NOTE | 2022-05-28 13:26 | NUR ---
IV site discontinued, cath intact. No edema , no redness, voices no discomfort.
--- NOTE | 2022-05-28 15:24 | NUR ---
Patient left via wheelchair for discharge
== END 2022-05-28 15:23 | disposition home or self-care (01) ==
LOC: ED 13:22 → ED-I 14:35 → ED 14:35 → ICU 14:48
PROVIDERS: Family Medicine; Hospitalist; Psychiatry & Neurology Neurology; ADMIT Internal Medicine; ATTEND Internal Medicine
DX: G45.9 Transient cerebral ischemic attack, unspecified (principal); I16.1 Hypertensive emergency; I10 Essential (primary) hypertension; E78.5 Hyperlipidemia, unspecified; F41.9 Anxiety disorder, unspecified; T45.516A Underdosing of anticoagulants, initial encounter; Z91.128 Patient's intentional underdosing of medication regimen for other reason; Z91.041 Radiographic dye allergy status; Z20.822 Contact with and (suspected) exposure to COVID-19
CPT/HCPCS: J1650; Q3014

== ENCOUNTER 2023-03-09 14:50 | Observation (INO) | payer BC, MEDICAID ==
[2023-03-09] VITALS (15 sets, daily range): BP systolic 154–202; BP diastolic 100–142
[~2023-03-09] VITALS: Ht 154.9 cm; Wt 53.5 kg
[~2023-03-09 14:50] MED LIST changes: +ASPIRIN 81 LOW81 MG PO; +LIPITOR80 M1 PO; +ZESTRIL40 MG PO
--- NOTE | 2023-03-09 14:58 | NUR ---
PT TO ROOM 8 VIA WHEELCHAIR C/O LEFT ARM NUMBNESS AND TINGLING OF THE FACE. DR. CROW AT BEDSIDE.
--- NOTE | 2023-03-09 15:00 | NUR ---
CBG 98
[2023-03-09 15:39] LABS: URINE BILIRUBIN - DIPSTICK NEGATIVE (NEGATIVE); URINE BLOOD DIPSTICK TRACE-LYSED (NEGATIVE); URINE COLOR YELLOW; URINE GLUCOSE - DIPSTICK NEGATIVE (NEGATIVE); URINE KETONE NEGATIVE (NEGATIVE); URINE LEUK ESTERASE TRACE (NEGATIVE); URINE PROTEIN - DIPSTICK NEGATIVE (NEG-TRACE); URINE UROBILINOGEN - DIPSTICK 0.2 E.U./dL (0.2)
[2023-03-09 15:45] LABS: URINE NITRITE - DIPSTICK NEGATIVE (Negative)
[2023-03-09 16:03] LABS: BASO% 0.8 % (0-3); EOS% 0.8 % (0-8); HEMATOCRIT 44.6 % (37.0-47.0); HEMOGLOBIN 14.2 g/dl (12.0-16.0); IMMATURE GRANULOCYTES 0.2 % (0.0-5.0); LYMPH% 45.5 % (15-41); MEAN CELL VOLUME 101.1 fL CALC (80.0-100.0); MEAN CORPUSCULAR HGB 32.2 pG CALC (26.0-32.0); MEAN CORPUSCULAR HGB CONC 31.8 g/dL CAL (32.0-36.0); MONO% 10.5 % (2-13); NEUT# 2.1 thou/uL (2.00-7.15); NEUT% 42.2 % (42-76); RED BLOOD COUNT 4.41 mill/uL (4.20-5.60)
[2023-03-09 16:21] LABS: ALBUMIN 4.5 g/dL (3.2-5.0); ALKALINE PHOSPHATASE 103 u/l (38-126); ANION GAP 16 (6-22 (CALC)); BUN 22 mg/dL (7-17); BUN/CREATININE RATIO 20 (12-20 (CALC)); CARBON DIOXIDE 21 mmol/l (22-30); CHLORIDE 107 mmol/l (95-108); CREATININE 1.1 mg/dL (0.5-1.0); GFR FOR AFR.AMER. > 60 ML/MIN (>=60 (CALC)); GFR OTHER RACES 52 ML/MIN (>=60 (CALC)); SGOT/AST 36 u/l (14-36); SODIUM 140 mmol/l (137-146); TOTAL PROTEIN 8.3 g/dL (6.3-8.2)
--- NOTE | 2023-03-09 16:21 | NUR ---
CHECKED ON PT. NAD AT THIS TIME. CALL LIGHT IS WITHIN REACH OF PT. PT STATES NUMBNESS AND TINGLING IN ARM AND FACE ARE GONE.
[2023-03-09 16:26] LABS: PROTHROMBIN TIME 10.4 SECONDS (9.0-12.5)
[2023-03-09 16:29] LABS: BILIRUBIN, TOTAL 0.3 mg/dL (0.02-1.3)
--- NOTE | 2023-03-09 16:47 | NUR ---
LABETALOL 10MG WAS GIVEN PER DR. CROW FOR BP AT 202/130. AFTER GIVEN, PT'S BP WENT DOWN TO 165/113. NAD AT THIS TIME PT DENIES NUMBNESS, DIZZINESS, OR TINGLING.
--- NOTE | 2023-03-09 18:10 | NUR ---
REPORT WAS GIVEN TO ALEX YBARRA OVER THE PHONE. PT IS GOING TO ROOM 268 ON MED/SURG.
--- NOTE | 2023-03-09 18:39 | NUR ---
PT WAS TRANSPORTED ALERT AND ORIENTED X3, AMBULATORY, ON ROOM AIR, AND HAS A PATENT 20 GAUGE IV IN THE LAC TO MED/SURG ROOM 268. JACKI AT THE TIME OF TRANSPORT AND NURSE ALEX HAS NO CONCERNS AT THE TIME.
--- NOTE | 2023-03-09 19:56 | NUR ---
PATIENT RESTING IN BED. ALERT AND ABLE TO MAKE NEEDS KNOWN. ASSESSMENT COMPLETE. COMPLAINING OF A MINOR HEADACHE. WILL NOTIFY SOAPING DEPARTMENT SUPERVISOR MD FOR PAIN MEDICATION. NO SIGNS OF DISTRESS. NIHSS 0. NO DEFICITS OBSERVED AT THIS TIME. BED REMAINS IN LOW POSITION. CALL LIGHT AND BELONGINGS IN REACH.
[2023-03-10 00:06] VITALS: BP 131/93
--- NOTE | 2023-03-10 00:40 | NUR ---
PATIENT RESTING ON HER RIGHT SIDE. NO DISTRESS NOTED. NO COMPLAINTS OF PAIN. BED REMAINS IN LOW POSITION. CALL YANCEY IN REACH.
--- NOTE | 2023-03-10 04:10 | NUR ---
PATIENT RESTING IN BED ON HER RIGHT SIDE. NO COMPLAINTS VOICED AT THIS TIME. NO DISTRESS NOTED. BED REMAINS IN LOW POSITION. CALL LIGHT AND BELONGINGS IN REACH.
[2023-03-10 04:29] VITALS: BP 147/110
[2023-03-10 06:56] VITALS: BP 130/100
--- NOTE | 2023-03-10 08:00 | NUR ---
GOT REPORT FROM CUSTOMER ADVOCATE NURSE. PATIENT ASSESSED. ON ROOM AIR, NO SXS OF DISTRESS OR DISCOMFORT. PATIENT HAS FALL PRECAUTIONS IN PLACE. CALL LIGHT AND BEDSIDE TABLE ARE WITH IN REACH. ADVISED TO CALL IF NEEDING ANYTHING.
[2023-03-10 09:44] VITALS: BP 167/115
[2023-03-10 12:00] VITALS: BP 162/108
--- NOTE | 2023-03-10 12:00 | NUR ---
PATIENT IN BED SLEEPING NO SXS OF DISTRESS OR DISCOMFORT. CALL LIGHT AND BEDSIDE TABLE WITH IN REACH.
--- NOTE | 2023-03-10 14:15 | NUR ---
NO EVAL NECESSARY. PT WITH APPROPRIATE SPEECH, LANGUAGE, AND SWALLOWING. NO CHANGES PRESENT.
[2023-03-10 15:28] VITALS: BP 129/102
--- NOTE | 2023-03-10 16:21 | NUR ---
Discharge instructions given. Patient verbalizes understanding of same. Discharged in stable condition via Wheelchair to Home. All belongings sent with pt.
[2023-03-11] MEDS ORDERED: LIPITOR40 M1 PO (12:15)
[2023-03-11] MEDS ORDERED: ADULT ASPIRIN R81 MG PO (12:15)
[2023-03-11] MEDS ORDERED: AMLODIPINE BESY10 MG PO (12:15)
== END 2023-03-10 16:21 | disposition home or self-care (01) | DRG 69 ==
LOC: ED 14:50 → ED-I 15:30 → ED 16:38 → MS2 16:39
PROVIDERS: Family Medicine; ADMIT Internal Medicine; ATTEND Internal Medicine
DX: G45.9 Transient cerebral ischemic attack, unspecified (principal); I10 Essential (primary) hypertension; E78.5 Hyperlipidemia, unspecified; M47.812 Spondylosis without myelopathy or radiculopathy, cervical region; F41.9 Anxiety disorder, unspecified; Z86.73 Personal history of transient ischemic attack (TIA), and cerebral infarction without residual deficits; Z91.041 Radiographic dye allergy status; Z91.14 Patient's other noncompliance with medication regimen
CPT/HCPCS: G0378

== ENCOUNTER 2023-03-11 09:47 | Emergency (ER) | payer BC, MEDICAID ==
[~2023-03-11] VITALS: Ht 154.9 cm; Wt 54.0 kg
[2023-03-11] VITALS (16 sets, daily range): BP systolic 99–199; BP diastolic 59–133
[2023-03-11] MEDS ORDERED: ADULT ASPIRIN R81 MG PO (12:15)
[2023-03-11] MEDS ORDERED: AMLODIPINE BESY10 MG PO (12:15)
[2023-03-11] MEDS ORDERED: LIPITOR40 M1 PO (12:15)
== END 2023-03-11 12:41 | disposition home or self-care (01) | DRG 305 ==
LOC: ED 09:47
DX: I16.1 Hypertensive emergency (principal); I10 Essential (primary) hypertension; F41.9 Anxiety disorder, unspecified; Z86.73 Personal history of transient ischemic attack (TIA), and cerebral infarction without residual deficits
CPT/HCPCS: J2060

== ENCOUNTER 2023-12-31 22:04 | Emergency (ER) | payer MEDICAID ==
[2023-12-31] VITALS (7 sets, daily range): BP systolic 123–211; BP diastolic 86–136
[~2023-12-31] VITALS: Ht 154.9 cm; Wt 61.0 kg
[~2023-12-31 22:04] MED LIST changes: +ADULT ASPIRIN R81 MG PO; +LIPITOR40 M1 PO
[2023-12-31 22:54] LABS: BASO% 0.5 % (0-3); EOS% 0.5 % (0-8); HEMATOCRIT 44.2 % (37.0-47.0); HEMOGLOBIN 13.9 g/dl (12.0-16.0); IMMATURE GRANULOCYTES 0.2 % (0.0-5.0); MEAN CELL VOLUME 101.8 fL CALC (80.0-100.0); MEAN CORPUSCULAR HGB CONC 31.4 g/dL CAL (32.0-36.0); NEUT# 3.14 thou/uL (2.00-7.15); NEUT% 47.8 % (42-76); RED BLOOD COUNT 4.34 mill/uL (4.20-5.60); RED CELL DISTRI WIDTH 12.4 % (11.5-15.5)
[2023-12-31 23:10] LABS: ALBUMIN 4.4 g/dL (3.2-5.0); ALKALINE PHOSPHATASE 77 u/l (38-126); ANION GAP 13 (6-22 (CALC)); BUN 18 mg/dL (7-17); BUN/CREATININE RATIO 18 (12-20 (CALC)); CARBON DIOXIDE 20 mmol/l (22-30); CHLORIDE 110 mmol/l (95-108); GFR FOR AFR.AMER. > 60 ML/MIN (>=60 (CALC)); GFR OTHER RACES 58 ML/MIN (>=60 (CALC)); POTASSIUM 3.8 mmol/l (3.5-5.1); SGOT/AST 39 u/l (14-36); SODIUM 140 mmol/l (137-146); TOTAL PROTEIN 8.3 g/dL (6.3-8.2)
[2023-12-31 23:18] LABS: BILIRUBIN, TOTAL 0.6 mg/dL (0.02-1.3)
[2024-01-01] VITALS (10 sets, daily range): BP systolic 89–130; BP diastolic 63–85
[2024-01-01] MEDS ORDERED: HYZAAR1 TA2 PO (01:10)
[2024-01-02] MEDS ORDERED: HYZAAR1 TA2 PO (10:01)
== END 2024-01-01 01:57 | disposition home or self-care (01) ==
LOC: ED 22:04
PROVIDERS: Family Medicine
DX: R07.89 Other chest pain (principal); I10 Essential (primary) hypertension; F41.9 Anxiety disorder, unspecified; T46.5X6A Underdosing of other antihypertensive drugs, initial encounter; T39.016A Underdosing of aspirin, initial encounter; Z91.128 Patient's intentional underdosing of medication regimen for other reason; Z86.73 Personal history of transient ischemic attack (TIA), and cerebral infarction without residual deficits

== ENCOUNTER 2024-01-01 12:36 | Emergency (ER) | payer MEDICAID ==
[2024-01-01] VITALS (11 sets, daily range): BP systolic 160–187; BP diastolic 111–127
[~2024-01-01] VITALS: Ht 154.9 cm; Wt 49.9 kg
[~2024-01-01 12:36] MED LIST changes: +HYZAAR1 TA2 PO
[2024-01-01 13:13] LABS: BASO% 0.5 % (0-3); EOS% 0.2 % (0-8); HEMATOCRIT 43.1 % (37.0-47.0); HEMOGLOBIN 13.8 g/dl (12.0-16.0); IMMATURE GRANULOCYTES 0.2 % (0.0-5.0); LYMPH% 46.8 % (15-41); MEAN CELL VOLUME 100.9 fL CALC (80.0-100.0); MEAN CORPUSCULAR HGB 32.3 pG CALC (26.0-32.0); NEUT# 1.73 thou/uL (2.00-7.15); NEUT% 41.3 % (42-76); RED BLOOD COUNT 4.27 mill/uL (4.20-5.60); RED CELL DISTRI WIDTH 12.6 % (11.5-15.5)
[2024-01-01 13:24] LABS: ALBUMIN 4.3 g/dL (3.2-5.0); ALKALINE PHOSPHATASE 76 u/l (38-126); ANION GAP 10 (6-22 (CALC)); BILIRUBIN, TOTAL 0.7 mg/dL (0.02-1.3); BUN 13 mg/dL (7-17); BUN/CREATININE RATIO 14 (12-20 (CALC)); CHLORIDE 108 mmol/l (95-108); CREATININE 0.9 mg/dL (0.5-1.0); GFR FOR AFR.AMER. > 60 ML/MIN (>=60 (CALC)); GFR OTHER RACES > 60 ML/MIN (>=60 (CALC)); POTASSIUM 4.3 mmol/l (3.5-5.1); SGOT/AST 39 u/l (14-36); SODIUM 140 mmol/l (137-146); TOTAL PROTEIN 8.1 g/dL (6.3-8.2)
[2024-01-01 13:42] LABS: CARBON DIOXIDE 26 mmol/l (22-30)
[2024-01-02] MEDS ORDERED: HYZAAR1 TA2 PO (10:01)
== END 2024-01-01 16:00 | disposition home or self-care (01) ==
LOC: ED 12:36
PROVIDERS: Family Medicine
DX: I10 Essential (primary) hypertension (principal); F41.9 Anxiety disorder, unspecified; Z86.73 Personal history of transient ischemic attack (TIA), and cerebral infarction without residual deficits

== ENCOUNTER 2024-01-03 14:59 | Emergency (ER) | payer MEDICAID ==
[~2024-01-03] VITALS: Ht 154.9 cm; Wt 51.2 kg
[2024-01-03 15:43] LABS: BASO% 0.4 % (0-3); EOS% 0.4 % (0-8); HEMOGLOBIN 14.5 g/dl (12.0-16.0); IMMATURE GRANULOCYTES 0.2 % (0.0-5.0); LYMPH% 48.4 % (15-41); MEAN CELL VOLUME 102.1 fL CALC (80.0-100.0); MEAN CORPUSCULAR HGB 33.6 pG CALC (26.0-32.0); MONO% 11.1 % (2-13); NEUT# 1.82 thou/uL (2.00-7.15); NEUT% 39.5 % (42-76); RED BLOOD COUNT 4.31 mill/uL (4.20-5.60); RED CELL DISTRI WIDTH 12.7 % (11.5-15.5)
[2024-01-03 15:54] LABS: ALBUMIN 4.6 g/dL (3.2-5.0); ALKALINE PHOSPHATASE 72 u/l (38-126); ANION GAP 13 (6-22 (CALC)); BILIRUBIN, TOTAL 0.9 mg/dL (0.02-1.3); BUN 12 mg/dL (7-17); BUN/CREATININE RATIO 12 (12-20 (CALC)); CARBON DIOXIDE 26 mmol/l (22-30); CHLORIDE 107 mmol/l (95-108); GFR FOR AFR.AMER. > 60 ML/MIN (>=60 (CALC)); GFR OTHER RACES 58 ML/MIN (>=60 (CALC)); POTASSIUM 3.8 mmol/l (3.5-5.1); SGOT/AST 36 u/l (14-36); SODIUM 142 mmol/l (137-146); TOTAL PROTEIN 8.4 g/dL (6.3-8.2)
[2024-01-03 17:33] VITALS: BP 124/94
[2024-01-03 17:46] VITALS: BP 115/95
[2024-01-03 18:10] VITALS: BP 115/95
== END 2024-01-03 18:13 | disposition home or self-care (01) ==
LOC: ED 14:59
PROVIDERS: Family Medicine
DX: I10 Essential (primary) hypertension (principal); F41.9 Anxiety disorder, unspecified; Z86.73 Personal history of transient ischemic attack (TIA), and cerebral infarction without residual deficits